=== PATIENT | male | born 1960 | race Caucasian/White ===

== ENCOUNTER → 2017-03-16 | Day surgery (SDC) | payer OTHER ==
[~2017-03-16] MED LIST: FLUMAZENIL 0.5 MG/5 ML MDV IVP ONE; MIDAZOLAM 2 MG/2 ML VIAL ONE; NALOXONE HCL 0.4 MG/ML INJ ONE; fentaNYL 100 MCG/2 ML INJ ONE
== END | disposition home or self-care (01) ==
LOC: FIMAGING 06:55
PROVIDERS: ATTEND Radiology Diagnostic Radiology
PROC: 0NB Head and Facial Bones, Excision (ICD-10-PCS; principal; 2017-03-16)
DX: C90.30 Solitary plasmacytoma not having achieved remission (principal)
CPT/HCPCS: J2250; J2310; J3010

== ENCOUNTER → 2017-07-28 | Outpatient (CLI) | payer OTHER | LOC: FIMAGING 08:41 | PROVIDERS: ATTEND Internal Medicine Hematology & Oncology | DX: Z01.811 Encounter for preprocedural respiratory examination (principal); C90.00 Multiple myeloma not having achieved remission ==